=== PATIENT | female | born 1995 | race Caucasian/White ===

== ENCOUNTER 2017-02-20 16:03 | Emergency (ER) | payer OTHER ==
[~2017-02-20] VITALS: Ht 170.2 cm; Wt 68.9 kg
[2017-02-20 16:16] VITALS: TEMP 37.2; Ht 170.2 cm; Wt 68.9 kg
[2017-02-20] MEDS ORDERED: BUPIVACAINE 0.5 % 5 MG/1 ML MPF 30ML VIAL INFIL STA (16:27)
[2017-02-20] MEDS ORDERED: XYLOCAINE 1%/SOD BICARB 20 ML VIAL INFIL STA (16:27)
--- NOTE | 2017-02-20 16:33 | EMERGENCY ROOM VISIT NOTE ---
ED Visit Note First contact with patient: 16:19 Chief Complaint: "Left Finger Laceration" History of Present Illness: This patient is a 22-year-old female who presents to the Emergency Department via private vehicle accompanied by male for evaluation of their left fourth digit laceration. Patient sustained the laceration while walking a dog, and the carabiner caught her left finger. They report a minimal amount of bleeding initially. They admit to minimal numbness or tingling into the distal extremity. They report no decreased range of motion of the affected digit. Patient rates her current discomfort as a 1/10. Patient's Tetanus status is currently up-to-date. Medications: As noted below Allergies: None PMH: No pertinent SHx: Patient lives locally. ROS: All pertinent positive and negative review of systems are appropriately documented in the History of Present Illness. Physical Exam: VITAL SIGNS - Vital signs and nursing notes were reviewed. Stable. GENERAL -22-year-old female appearing her stated age who is in no acute distress. Communicates well with provider and answers questions appropriately. SKIN - There is a 1 cm long laceration noted on the ventral aspect of the left fourth digit proximally. The edges gape apart with traction. No foreign bodies appreciated. Upon further examination there are no deep structures including vessel, tendon, or bony structures appreciated. There is no active bleeding noted. MUSCULOSKELETAL - Laceration as described above. +5/5 strength appreciated of the affected digit. Full range of motion of the affected digit. NEUROLOGIC - Spinothalamic tract was found to be intact with ability to discriminate sharp versus dull sensation. No sensory defects of the dorsal column were appreciated utilizing light touch for evaluation. VASCULAR - Capillary refill was brisk. ED Course: Patient was seen and evaluated by myself. Risks and and benefits of performing primary wound closure versus no repair were discussed with the patient who verbalizes understanding. Verbal consent was obtained prior to performing the procedure. 4 cc of 50/50 ratio of 1% buffered lidocaine and 0.5% bupivicaine was used to perform a digital block of the left 4th digit. The wound was cleansed and prepped in the typical sterile fashion utilizing normal saline and Betadine. The wound was sterilely draped. Once proper anesthetization was established, the wound was further examined and demonstrated no deep involvement. The wound was copiously irrigated with normal saline and Betadine. The wound was closed using 3 simple, 5-0 nylon sutures with the wound edges being well approximated. Patient tolerated the procedure well. No complications were met. The wound was cleansed and dressed with a Bacitracin dressing. A metal splint was applied to the finger for comfort. Patient educated on worrisome symptoms for return visit to the Emergency Department. Patient discharged to home in good condition. There was no evidence of deep involvement to the tendon, or bone. In the evaluation and treatment of this patient, the following differential diagnoses were considered: Finger Fracture, Finger Dislocation, Finger Sprain, Finger Contusion, Jersey Finger, or Mallet Finger. Problem List Medical Problems: (1) Closed right ankle fracture Status: Resolved (2) Hyperhydrosis disorder Status: Resolved (3) No chronic diseases present Status: Resolved Current/Historical Medications No Active Prescriptions or Reported Meds Allergies Coded Allergies: No Known Allergies (Unverified , 06/01/13) Vital Signs Date Time Temp Pulse Resp B/P (MAP) Pulse Ox O2 Delivery O2 Flow Rate FiO2 02/20/17 17:12 78 18 102/57 98 02/20/17 16:16 37.2 78 18 102/57 98 Room Air Departure Information Impression Primary Impression: Laceration Dispostion Home / Self-Care Condition GOOD Prescriptions No Active Prescriptions or Reported Meds Referrals No Doctor, Assigned (PCP) Patient Instructions My [facility] Additional Instructions Discharge Instructions: You have received 3 sutures on your finger. These sutures are NOT dissolvable and WILL need to be removed by a health care provider in 12-14 days. You can return to the Emergency Department or contact your Primary Care Provider to have the sutures removed. Please wear the splint for comfort until the sutures are removed. Proper wound care is essential for adequate wound healing and infection prevention. You can shower and clean the wound with soap and water. Do not scour over the wound, pat dry with a towel. Do not submerse the wound (i.e. bathe or dish wash) until the sutures have been removed. You can use an antibiotic ointment with a dressing over the wound for the next 3-4 days. After this time you may leave the wound dry and open to the air. If crust develops over the wound you can use a Q-tip to apply a 1:1 peroxide:water solution to clean the wound. Look for signs of infection of the wound including: increased pain, swelling, foul discharge, streaking, or increased temperature. If any of these are noticed you should return to the Emergency Department for further assessment and treatment. As with any laceration you may have received nerve damage to the surrounding tissues. This damage may or may not be permanent. You should keep the area covered with sunscreen for the first 6 months to 1 year when at risk for exposure to help minimize scarring. You can also use scar reducing creams or Vitamin E oil to help minimize scarring. For pain control, you can use the following [id number] medicines (if >12 yo): - Regular strength (325mg/tab) Tylenol (acetaminophen) 2 tabs every 4-6 hours as needed. Do not exceed 12 tablets in a 24 hour period. Avoid taking more than 3 grams (3000 mg) of Tylenol per day. This includes any other sources of acetaminophen you may take on a regular basis. - Regular strength (200 mg/tab) Advil (ibuprofen) 1-2 tabs every 4-6 hours as needed. Do not exceed a dose of 3200 mg per day. Return to the emergency department if your symptoms worsen despite treatment course outlined above.
[2017-02-20 17:12] VITALS: BP 102/57; PULSE 78; O2SAT 98
== END 2017-02-20 17:12 | disposition home or self-care (01) ==
LOC: C.EDB 16:05 → C.EDD 17:12
DX: S61.215A Laceration without foreign body of left ring finger without damage to nail, initial encounter (principal); W45.8XXA Other foreign body or object entering through skin, initial encounter; Y93.K1 Activity, walking an animal

== ENCOUNTER 2017-03-07 12:45 | Emergency (ER) | payer OTHER ==
[~2017-03-07] VITALS: Ht 170.2 cm; Wt 70.4 kg
[2017-03-07 12:56] VITALS: BP 124/75; PULSE 85; TEMP 36.6; O2SAT 95; Ht 170.2 cm; Wt 70.4 kg
--- NOTE | 2017-03-07 13:14 | EMERGENCY ROOM VISIT NOTE ---
ED Visit Note First contact with patient: 13:07 CHIEF COMPLAINT: Suture removal This patient returns to the ED today for removal of sutures that were placed 14 days ago. There has been no swelling, redness, or drainage from the wound. The patient feels like the laceration is healing well. REVIEW OF SYSTEMS: Head: No headache, injury or neck pain. Skin: No rash, new lesions, or masses. General: No fever or chills, fatigue, loss of appetite , or significant recent weight gain or loss. PMH: The patient is healthy; there is no significant medical or surgical history. SOCIAL HISTORY: Patient lives at home. PHYSICAL EXAM: Vital Signs: Reviewed Nurse's notes. There is a sutured wound on the left fourth digit with no signs of infection. There is no erythema, swelling, or tenderness. EMERGENCY DEPARTMENT COURSE: The sutures were removed without any difficulty and there was no separation of the wound edges. She notes slight tingling in the finger, I provided her the number for hand specialist which she may follow- up with. There is full range of motion and she is neurovascularly intact. No signs of infection. This may be either from the carabiner/ trauma or from the laceration. DIAGNOSIS: Healing laceration and suture removal Problem List Medical Problems: (1) Closed right ankle fracture Status: Resolved (2) Hyperhydrosis disorder Status: Resolved (3) No chronic diseases present Status: Resolved Current/Historical Medications No Active Prescriptions or Reported Meds Allergies Coded Allergies: No Known Allergies (Unverified , 03/07/17) Vital Signs Date Time Temp Pulse Resp B/P (MAP) Pulse Ox O2 Delivery O2 Flow Rate FiO2 03/07/17 12:56 36.6 85 18 124/75 95 Room Air Departure Information Impression Primary Impression: Encounter for removal of sutures Dispostion Home / Self-Care Condition GOOD Prescriptions No Active Prescriptions or Reported Meds Referrals No Doctor, Assigned (PCP) Tomás Kenny MD Patient Instructions My [facility] [employer] Additional Instructions DISCHARGE INSTRUCTIONS AND TREATMENT: Wash any remaining crusts off of the wound today and resume your normal activities. Dr. Kenny is a hand specialist you may follow-up with if there is persistent tingling. Number provided above.
== END 2017-03-07 13:24 | disposition home or self-care (01) ==
LOC: C.EDB 12:46 → C.EDD 13:24
DX: S61.215D Laceration without foreign body of left ring finger without damage to nail, subsequent encounter (principal); X58.XXXD Exposure to other specified factors, subsequent encounter